=== PATIENT | female | born 1960 | race Caucasian/White ===

== ENCOUNTER 2016-09-19 09:18 | Emergency (ER) | payer OTHER ==
[2016-09-19] MEDS ORDERED: ALBUTEROL/IPRATROPIUM 2.5/0.5 MG 3 ML/EACH DOSE ONE (09:25)
[2016-09-19] MEDS ORDERED: PREDNISONE 20 MG TABLET ONE (10:16)
[2016-09-19] MEDS ORDERED: ALBUTEROL NEB 2.5 MG/3 ML VIAL.NEB NEB ONE (10:23)
== END 2016-09-19 11:13 | disposition home or self-care (01) ==
LOC: ED 09:18
DX: J45.901 Unspecified asthma with (acute) exacerbation (principal)
CPT/HCPCS: 94640; 99283 ×2; J7512